=== PATIENT | female | born 1990 | race Caucasian/White ===

== ENCOUNTER 2017-07-08 07:15 | Observation (INO) | payer MEDICAID ==
[~2017-07-08] VITALS: Ht 154.9 cm; Wt 78.5 kg
[2017-07-08] MEDS ORDERED: TERBUTALINE SULFATE 1 MG/ML 1ML VIAL SC ONE (08:15)
[2017-07-08] MEDS ORDERED: ONDANSETRON HCL 4 MG/2 ML VIAL ONE (08:31)
[2017-07-08] MEDS ORDERED: LACTATED RINGER'S 1,000 ML IV ONE ×2 (08:45→10:15)
[2017-07-08] MEDS ORDERED: ONDANSETRON HCL 4 MG/2 ML VIAL IV ONE (08:45)
[2017-07-08] MEDS ORDERED: PREN-96 PO (10:25)
[2017-07-08] MEDS ORDERED: PROMETHAZINE HCL 25 MG/ML 1ML ONE (11:29)
[2017-07-08] MEDS ORDERED: PROMETHAZINE HCL 25 MG/ML 1ML IM ONE (11:30)
[2017-07-08] MEDS ORDERED: PROMETHAZINE HCL 25 MG/ML 1ML IV ONE (11:30)
[2017-07-08] MEDS ORDERED: NALBUPHINE HCL 10 MG/1ml INJECTION IV PRN (13:00)
[2017-07-08] MEDS ORDERED: ONDANSETRON HCL 4 MG/2 ML VIAL IV PRN (13:00)
[2017-07-08 13:18] LABS: Hematocrit 33.4 % (36.0-46.0); Mean Corpuscular Hemoglobin 28.8 pg (28.0-32.0); Mean Corpuscular Volume 87.1 fL (80.0-100.0); Mean Platelet Volume 8.9 fL (6.9-10.8); Platelet Count (auto) 184 10^3/uL (140-450); Red Cell Distribution Width 13.5 % (11.8-14.3); White Blood Cell 17.7 10^3/uL (4.4-10.8)
[2017-07-08 13:29] LABS: Metamyelocytes % 0; Myelocytes % 0; Promyelocytes % 0; Reactive Lymphocytes 0
[2017-07-08 13:36] LABS: Albumin 2.8 g/dL (3.4-5.0); BUN/Creatinine Ratio 13.7; Bilirubin, Total 0.2 mg/dL (0.2-1.0); Calcium 8.4 mg/dL (8.5-10.1); Potassium 3.6 mmol/L (3.5-5.1); Total Protein 7.1 g/dL (6.4-8.2)
[2017-07-08] MEDS ORDERED: LACTATED RINGER'S 1,000 ML IV SCH (13:45)
[2017-07-08 14:28] LABS: Amylase 58 U/L (25-115)
[2017-07-08 14:45] LABS: Platelet Estimate Adequate
[2017-07-08] MEDS ORDERED: MORPHINE SULF INJ 2 MG/ML SYRINGE 1ML IV PRN (16:30)
[2017-07-08] MEDS ORDERED: MEPERIDINE HCL (50 MG/ML) 1 ML VIAL IV PRN (16:30)
[2017-07-08 16:43] LABS: Urine Bilirubin Negative (Negative); Urine Blood 3+ /uL (Negative); Urine Color PINK (Yellow); Urine Glucose Normal (Normal); Urine Ketone Negative (Negative); Urine Mucus FEW (None Seen); Urine Nitrite Negative (Negative); Urine RBC 18 /hpf (0 - 4); Urine Squamous Epithelial Cell MOD /hpf (<5); Urine Urobilinogen Normal (Negative)
[2017-07-08] MEDS ORDERED: PROMETHAZINE HCL 25 MG/ML 1ML IV SCH (18:00)
[2017-07-08] MEDS ORDERED: PROMETHAZINE HCL 25 MG/ML 1ML IV PRN (18:00)
[2017-07-08] MEDS ORDERED: ceFAZolin 1GM/50ML 50 ML IV ONE (18:37)
[2017-07-08] MEDS ORDERED: ceFAZolin 1GM/50ML 50 ML IV SCH (19:00)
== END 2017-07-08 20:47 | disposition home or self-care (01) | DRG 566 ==
LOC: LDRP 07:15
PROVIDERS: ADMIT Obstetrics & Gynecology; ATTEND Obstetrics & Gynecology
DX: O21.2 Late vomiting of pregnancy (principal); N13.30 Unspecified hydronephrosis; O26.892 Other specified pregnancy related conditions, second trimester; Z3A.22 22 weeks gestation of pregnancy; M54.9 Dorsalgia, unspecified; O99.89 Other specified diseases and conditions complicating pregnancy, childbirth and the puerperium
CPT/HCPCS: 36415; 59025; 76775; 76815; 80053; 80307; 81001; 81002; 82150; 83690; 85007; 85027; 96361; 96372; 96374; 96375; 96376; G0378; J0690; J2175; J2300; J2405; J2550; J3105

== ENCOUNTER 2017-10-30 03:50 | Inpatient (IN) | payer BC, MEDICAID ==
[2017-10-30] VITALS (17 sets, daily range): BP systolic 90–117; BP diastolic 41–89
[~2017-10-30] VITALS: Ht 154.9 cm; Wt 83.9 kg
[~2017-10-30 03:50] MED LIST: PREN-96 PO
[2017-10-30] MEDS: LACTATED RINGER'S 1,000 ML IV SCH ×3 (04:03→20:01)
[2017-10-30 04:43] LABS: Basophils # (auto) 0 uL; Basophils % (auto) 0.3 % (0.0-2.0); Eosinophils # (auto) 0.1 uL; Eosinophils % (auto) 0.7 % (0.0-7.0); Hematocrit 33.3 % (36.0-46.0); Lymphocytes # (auto) 2.2 uL; Lymphocytes % (auto) 18.5 % (10.0-50.0); Mean Corpuscular Hemoglobin 27.2 pg (28.0-32.0); Mean Corpuscular Hgb Conc. 33.1 g/dL (32.0-36.0); Mean Corpuscular Volume 82.2 fL (80.0-100.0); Monocytes # (auto) 0.7 uL; Monocytes % (auto) 5.7 % (0.0-12.0); Neutrophils # (auto) 8.8 uL; Neutrophils % (auto) 74.8 % (37.0-80.0); Nucleated Red Blood Cells % 0.1 %; Platelet Count (auto) 211 10^3/uL (140-450); Red Blood Cells 4.06 10^6/uL (4.0-5.20); Red Cell Distribution Width 15.9 % (11.8-14.3); White Blood Cell 11.8 10^3/uL (4.4-10.8)
[2017-10-30] MEDS ORDERED: FERR1TAB36 PO (04:48)
[2017-10-30 05:03] LABS: Albumin 2.5 g/dL (3.4-5.0); BUN/Creatinine Ratio 16.7; Calcium 8.7 mg/dL (8.5-10.1); Potassium 3.8 mmol/L (3.5-5.1)
[2017-10-30 05:06] LABS: Bilirubin, Total 0.3 mg/dL (0.2-1.0); Total Protein 6.8 g/dL (6.4-8.2)
[2017-10-30 05:20] LABS: INR 0.9 (0.9-1.15); Partial Thromboplastin Time 26.1 sec (22.64-33.71); Prothrombin Time 9.8 sec (9.37-12.3)
[2017-10-30 05:54] LABS: Urine Bacteria NONE SEEN /hpf (None Seen); Urine Blood Negative /uL (Negative); Urine Mucus FEW (None Seen); Urine Specific Gravity 1.016 (1.001-1.035); Urine WBC <1 /hpf (0 - 5)
[2017-10-30] MEDS ORDERED: TETRACAINE 1% INJ 2 ML VIAL IJ ONE (06:56)
[2017-10-30] MEDS ORDERED: MIDAZOLAM HCL 1MG/1ML-2 ML VIAL ONE (06:58)
[2017-10-30] MEDS ORDERED: fentaNYL CITRATE 100 MCG/2 ML VL ONE (06:58)
[2017-10-30] MEDS ORDERED: ceFAZolin 1GM VL ONE (06:58)
[2017-10-30] MEDS ORDERED: ePHEDrine SULFATE 50 MG/ML AMP ONE (06:58)
[2017-10-30] MEDS ORDERED: ONDANSETRON HCL 4 MG/2 ML VIAL ONE (06:58)
[2017-10-30] MEDS ORDERED: SODIUM CHLORIDE LOCK 10 ML ONE (06:58)
[2017-10-30] MEDS ORDERED: OXYTOCIN 10 UNIT/ML 10ML VIAL ONE (06:58)
[2017-10-30] MEDS ORDERED: MORPHINE SULF(PF) 0.5MG/ML 10ML VIAL ONE (06:58)
[2017-10-30] MEDS ORDERED: LACT. RINGERS/OXYTOCIN 20UNITS 1,000 ML IV SCH (08:03)
[2017-10-30] MEDS ORDERED: HYDROmorphone HCL 2 MG/ML VL IV PRN (08:15)
[2017-10-30] MEDS ORDERED: NALOXONE HCL 0.4 MG/ML VIAL IV PRN (08:15)
[2017-10-30] MEDS ORDERED: KETOROLAC TROMETH 30 MG/ML 1ML VIAL IV ONE (08:15)
[2017-10-30] MEDS ORDERED: ceFAZolin 1GM/50ML 50 ML IV SCH (08:15)
[2017-10-30] MEDS ORDERED: diphenhdrAMINE HCL 50 MG/1 ML VL IV PRN (08:15)
[2017-10-30] MEDS ORDERED: ONDANSETRON HCL 4 MG/2 ML VIAL IV PRN (08:15)
[2017-10-30] MEDS: KETOROLAC TROMETH 30 MG/ML 1ML VIAL IV PRN ×2 (11:50→21:03)
[2017-10-30] MEDS: MORPHINE SULF INJ 2 MG/ML SYRINGE 1ML IV PRN ×2 (14:01→18:40)
[2017-10-30] MEDS: ceFAZolin 1GM/50ML 50 ML IV SCH ×2 (14:45→22:39)
[2017-10-30 19:48] LABS: Basophils # (auto) 0 uL; Basophils % (auto) 0.3 % (0.0-2.0); Eosinophils # (auto) 0 uL; Eosinophils % (auto) 0.3 % (0.0-7.0); Hematocrit 30.7 % (36.0-46.0); Lymphocytes # (auto) 1.8 uL; Lymphocytes % (auto) 14.5 % (10.0-50.0); Mean Corpuscular Hemoglobin 27.3 pg (28.0-32.0); Mean Corpuscular Hgb Conc. 32.7 g/dL (32.0-36.0); Mean Corpuscular Volume 83.4 fL (80.0-100.0); Monocytes # (auto) 0.7 uL; Monocytes % (auto) 5.2 % (0.0-12.0); Neutrophils # (auto) 10.1 uL; Neutrophils % (auto) 79.7 % (37.0-80.0); Nucleated Red Blood Cells % 0.1 %; Platelet Count (auto) 168 10^3/uL (140-450); Red Blood Cells 3.68 10^6/uL (4.0-5.20); White Blood Cell 12.7 10^3/uL (4.4-10.8)
[2017-10-31] VITALS (7 sets, daily range): BP systolic 94–113; BP diastolic 62–83
[2017-10-31] MEDS: MORPHINE SULF INJ 2 MG/ML SYRINGE 1ML IV PRN (03:23)
[2017-10-31] MEDS: LACTATED RINGER'S 1,000 ML IV SCH ×3 (04:03→20:03)
[2017-10-31] MEDS: KETOROLAC TROMETH 30 MG/ML 1ML VIAL IV PRN (05:08)
[2017-10-31] MEDS: ceFAZolin 1GM/50ML 50 ML IV SCH (07:00)
[2017-10-31 07:57] LABS: Basophils # (auto) 0 uL; Basophils % (auto) 0.3 % (0.0-2.0); Eosinophils # (auto) 0.1 uL; Eosinophils % (auto) 0.7 % (0.0-7.0); Hematocrit 32.8 % (36.0-46.0); Lymphocytes # (auto) 1.2 uL; Lymphocytes % (auto) 10.5 % (10.0-50.0); Mean Corpuscular Hemoglobin 27.4 pg (28.0-32.0); Mean Corpuscular Hgb Conc. 33.7 g/dL (32.0-36.0); Mean Corpuscular Volume 81.4 fL (80.0-100.0); Monocytes # (auto) 0.6 uL; Neutrophils # (auto) 9.4 uL; Neutrophils % (auto) 83.5 % (37.0-80.0); Platelet Count (auto) 185 10^3/uL (140-450); Red Blood Cells 4.03 10^6/uL (4.0-5.20); Red Cell Distribution Width 15.9 % (11.8-14.3); White Blood Cell 11.2 10^3/uL (4.4-10.8)
[2017-10-31] MEDS ORDERED: BISACODYL 10 MG RECT SUPP PR PRN (09:15)
[2017-10-31] MEDS ORDERED: HYDROcodone-ACET 5/325MG TAB PO PRN (09:15)
[2017-10-31] MEDS: HYDROcodone-ACET 5/325MG TAB PO PRN ×3 (09:25→23:21)
[2017-10-31] MEDS: DOCUSATE SOD 100 MG CAP PO SCH ×2 (10:14→21:45)
[2017-10-31] MEDS: DOCUSATE CALCIUM 240 MG CAP PO SCH (10:14)
[2017-10-31] MEDS: FERROUS SULFATE 325 MG TAB PO SCH ×2 (10:14→21:45)
[2017-10-31] MEDS: SIMETHICONE 80 MG CHEWABLE TABLET PO SCH ×3 (12:25→21:45)
[2017-10-31] MEDS: IBUPROFEN 800 MG TAB PO PRN ×2 (13:50→21:50)
[2017-11-01 03:34] VITALS: BP 113/63
[2017-11-01] MEDS: IBUPROFEN 800 MG TAB PO PRN ×3 (05:54→18:01)
[2017-11-01] MEDS: SIMETHICONE 80 MG CHEWABLE TABLET PO SCH ×4 (05:54→22:22)
[2017-11-01 08:00] VITALS: BP 120/72
[2017-11-01] MEDS: FERROUS SULFATE 325 MG TAB PO SCH ×2 (10:14→22:22)
[2017-11-01] MEDS: DOCUSATE CALCIUM 240 MG CAP PO SCH (10:14)
[2017-11-01] MEDS: DOCUSATE SOD 100 MG CAP PO SCH ×2 (10:14→22:22)
[2017-11-01] MEDS: HYDROcodone-ACET 5/325MG TAB PO PRN ×2 (10:15→19:20)
[2017-11-01 12:07] VITALS: BP 118/82
[2017-11-01 15:49] VITALS: BP 114/62
[2017-11-01 19:00] VITALS: BP 124/74
[2017-11-01 23:00] VITALS: BP 117/63
[2017-11-02 04:00] VITALS: BP 128/71
[2017-11-02] MEDS: HYDROcodone-ACET 5/325MG TAB PO PRN ×2 (04:06→11:26)
[2017-11-02] MEDS: SIMETHICONE 80 MG CHEWABLE TABLET PO SCH ×2 (05:52→12:00)
[2017-11-02 08:00] VITALS: BP 123/71
[2017-11-02 12:30] VITALS: BP 109/70
[2017-11-02] MEDS: FERROUS SULFATE 325 MG TAB PO SCH (13:49)
[2017-11-02] MEDS: DOCUSATE CALCIUM 240 MG CAP PO SCH (13:49)
[2017-11-02] MEDS: DOCUSATE SOD 100 MG CAP PO SCH (13:49)
== END 2017-11-02 14:00 | disposition home or self-care (01) | DRG 765 ==
LOC: LDRP 03:50
PROVIDERS: ADMIT Obstetrics & Gynecology; ATTEND Obstetrics & Gynecology
PROC: 10D00Z1 Extraction of Products of Conception, Low, Open Approach (ICD-10-PCS; principal; 2017-10-30 07:18)
DX: O34.211 Maternal care for low transverse scar from previous cesarean delivery (principal); O60.23X1 Term delivery with preterm labor, third trimester, fetus 1; Z37.0 Single live birth; Z3A.39 39 weeks gestation of pregnancy; Z90.49 Acquired absence of other specified parts of digestive tract
CPT/HCPCS: 36415; 51702; 59025; 80053; 81001; 81002; 85025; 85610; 85730; 86850; 86900; 86901; 96365; 96366; 96375; J0690; J1885; J2250; J2405; J2590

== ENCOUNTER 2019-03-22 18:16 | Emergency (ER) | payer BC, MEDICAID ==
[~2019-03-22] VITALS: Ht 154.9 cm; Wt 75.3 kg
[~2019-03-22 18:16] MED LIST changes: +FERR1TAB36 PO
[2019-03-22 21:00] VITALS: BP 130/77
[2019-03-22] MEDS ORDERED: ACETAMINOPHEN/CODEINE#3 (300/30mg) TAB PO ONE (22:00)
== END 2019-03-22 22:53 | disposition home or self-care (01) ==
LOC: ER 18:16
DX: S52.302A Unspecified fracture of shaft of left radius, initial encounter for closed fracture (principal); Z90.49 Acquired absence of other specified parts of digestive tract; W22.8XXA Striking against or struck by other objects, initial encounter; Y93.89 Activity, other specified; Y99.8 Other external cause status; Y92.89 Other specified places as the place of occurrence of the external cause
CPT/HCPCS: 29105; 73080